=== PATIENT | female | born 1975 | race Caucasian/White ===

== ENCOUNTER 2023-05-24 07:24 | Outpatient (OUT) | payer BC, SELFPAY | END 2023-05-24 07:25 | disposition home or self-care (01) | LOC: SLEEP 07:39 | PROVIDERS: PCP Family Medicine; Visit Provider Family Medicine | DX: G47.33 Obstructive sleep apnea (adult) (pediatric) (principal) | CPT/HCPCS: 95806 ==

== ENCOUNTER 2023-10-19 10:11 | Outpatient (OUT) | payer BC, SELFPAY ==
[2023-10-19 10:27] LABS: Basophils Percent Auto 0.4 % (0.2-2.0); Eosinophils Absolute Auto 0.3 10^3/uL (0.0-0.7); Eosinophils Percent Auto 3.7 % (0.9-7.0); Hematocrit 40.7 % (36.0-48.0); Hemoglobin 13.4 g/dL (12.0-16.0); Immature Granulocytes Abs Auto 0.02 10^3/uL (0.00-0.03); Immature Granulocytes Pct Auto 0.3 % (0.0-0.5); Lymphocytes Absolute Auto 1.6 10^3/uL (1.2-3.8); Lymphocytes Percent Auto 23.4 % (20.5-60.0); Mean Corpuscular HGB Conc 32.9 g/dL (29.9-35.2); Mean Corpuscular Hemoglobin 30.1 pg (26.7-34.0); Mean Corpuscular Volume 91.5 fL (81.0-99.0); Mean Platelet Volume 10.1 fL (9.5-13.5); Monocytes Absolute Auto 0.7 10^3/uL (0.3-0.8); Monocytes Percent Auto 9.9 % (1.7-12.0); Neutrophils Absolute Auto 4.2 10^3/uL (1.4-6.5); Neutrophils Percent Auto 62.3 % (43.0-75.0); Platelet Count 273 10^3/uL (150-450); Red Blood Count 4.45 10^6/uL (4.20-5.40); White Blood Count 6.7 10^3/uL (4.0-11.0)
[2023-10-19 10:39] LABS: Estimated Average Glucose 103 mg/dL; Glycohemoglobin A1C 5.2 % (4.5-6.2)
[2023-10-19 10:51] LABS: Anion Gap 9.5; BUN Creatinine Ratio 10.6; Calcium 8.9 mg/dL (8.5-10.1); Carbon Dioxide 28.4 mmol/L (21.0-32.0); Chloride 102 mmol/L (98-107); Estimated GFR (African America >60 (>=60); Estimated GFR (Non-African Ame >60 (>=60); Glucose 102 mg/dL (74-106); Potassium 3.9 mmol/L (3.5-5.1); Sodium 136 mmol/L (136-145); Thyroid Stimulating Hormone 2.319 uIU/mL (0.358-3.740)
== END 2023-10-19 10:12 | disposition home or self-care (01) ==
LOC: LAB 10:12
PROVIDERS: PCP Family Medicine; Visit Provider Family Medicine
DX: M79.2 Neuralgia and neuritis, unspecified (principal); R79.89 Other specified abnormal findings of blood chemistry; R73.09 Other abnormal glucose
CPT/HCPCS: 36415; 80048; 82306; 82728; 83036; 84443; 85025

== ENCOUNTER 2025-08-06 13:29 | Outpatient (OUT) | payer BC, SELFPAY ==
--- OUTSIDE RECORDS SUMMARY | 2025-08-06 13:31 | XMS_ITS | CCD ---
Author Organization [facility] Care Team Providers Care Underwear Finisher Name Role Phone Unavailable Primary Care Provider MICHELLE Sheehan Referring Unavailable OBDULIO, DR FLAKITA Cuadra Attending Unavailable WEST, DR FLAKITA Cuadra Admitting Unavailable SEVERINO, DR HERI Junior Primary Care Unavailable WEST, DR FLAKITA Cuadra Consulting Unavailable WEST, DR FLAKITA Cuadra Attending Unavailable WEST, DR FLAKITA Cuadra Admtrisha Unavailable SEVERINO, DR HERI Junior Primary Care Unavailable WEST, DR FLAKITA Cuadra Consulting Unavailable SIN, DR CORNELIO Martinez Consulting Unavailable WEST, DR FLAKITA Cuadra Admitting Unavailable WEST, DR FLAKITA Cuadra Consulting Unavailable WEST, DR FLAKITA Cuadra Attending Unavailable SEVERINO, DR HERI Junior Primary Care Unavailable ZIEBER, DR CORNELIO Martinez Consulting Unavailable WEST, DR FLAKITA Cuadra Attending Unavailable WEST, DR FLAKITA Cuadra Admitting Unavailable SEVERINO, DR HERI Junior Primary Care Unavailable WEST, DR FLAKITA Cuadra Consulting Unavailable WEST, DR FLAKITA Cuadra Admtrisha Unavailable WEST, DR FLAKITA Cuadra Consulting Unavailable WEST, DR FLAKITA Cuadra Attending Unavailable SEVERINO, DR HERI Junior Primary Care Unavailable WEST, DR FLAKITA Cuadra Admitting Unavailable WEST, DR FLAKITA Cuadra Consulting Unavailable WEST, DR FLAKITA Cuadra Attending Unavailable SEVERINO, DR HERI Junior Primary Care Unavailable WEST, DR FLAKITA Cuadra Consulting Unavailable WEST, DR FLAKITA Cuadra Attending Unavailable SEVERINO, DR HERI Junior Primary Care Unavailable WEST, DR FLAKITA Cuadra Admitting Unavailable WEST, DR FLAKITA Cuadra Attending Unavailable WEST, DR FLAKITA Cuadra Admitting Unavailable SEVERINO, DR HERI Junior Primary Care Unavailable WEST, DR FLAKITA Cuadra Consulting Unavailable WEST, DR FLAKITA Cuadra Attending Unavailable WEST, DR FLAKITA Cuadra Admitting Unavailable SEVERINO, DR HERI Junior Primary Care Unavailable WEST, DR FLAKITA Cuadra Consulting Unavailable SEVERINO, DR HERI Junior Consulting Unavailable SEVERINO, DR HERI Junior Attending Unavailable SEVERINO, DR HERI Junior Admitting Unavailable SEVERINO, DR HERI Junior Primary Care Unavailable WEST, DR FLAKITA Cuadra Consulting Unavailable SEVERINO, DR HERI Junior Consulting Unavailable SEVERINO, DR HERI Junior Attending Unavailable SEVERINO, DR HERI Junior Admitting Unavailable SEVERINO, DR HERI Junior Primary Care Unavailable WEST, DR FLAKITA Cuadra Admitting Unavailable DR FLAKITA MAK V Consulting Unavailable DR FLAKITA MAK V Attending Unavailable DR HERI SEVERINO Primary Care Unavailable Giana Joseph Unavailable Chana Zaragoza Attending Unavailable Chana Zaragoza Attending Unavailable Giana Joseph MD Primary Care Provider Giana Joseph MD Attending Provider Allergies Allergy Classification Reported Allergen(s) Allergy Type Date of Onset Reaction(s) Facility (1 source) Latex Drug allergy (disorder) 03-07-2013 [facility] Rep[facility] (1 source) Meperidine Drug Allergy 03-07-2013 [facility] (1 source) Nalbuphine Drug Allergy 03-07-2013 [facility] Medications Current Medications Medication Drug Class(es) Dates Sig (Normalized) Sig (Original) cholecalciferol 1.25 mg oral capsule (1 source) Vitamin D Start: 07-13-2025 take 1 capsule by mouth every week Cholecalciferol (Vitamin D3) 1,250 mcg (50,000 unit) capsule Active 1250 MCG PO every week July 13, 2025 12:00am Complies with drug therapy levothyroxine sodium 0.075 mg oral tablet (1 source) l-Thyroxine Start: 07-13-2025 take 1 tablet by mouth once daily Levothyroxine 75 mcg tablet Active 75 MCG PO daily July 13, 2025 12:00am Complies with drug therapy Problems Active Problems Problem Classification Problem Date Documented Date Episodic/Chronic Abdominal pain (1 source) Unspecified abdominal pain Episodic Other lower respiratory disease (1 source) Snoring Episodic Other nutritional; endocrine; and metabolic disorders (3 sources) Body mass index 30+ - obesity; Translations: [Body mass index (BMI) 32.0-32.9, adult] Chronic Other nutritional; endocrine; and metabolic disorders (3 sources) Obesity caused by energy imbalance; Translations: [Other obesity due to excess calories] Chronic Other nutritional; endocrine; and metabolic disorders (1 source) Other obesity due to excess calories Chronic Other nutritional; endocrine; and metabolic disorders (1 source) Body mass index (BMI) 32.0-32.9, adult Chronic Other nutritional; endocrine; and metabolic disorders (2 sources) Obesity; Translations: [Class 1 obesity with body mass index (BMI) of 33.0 to 33.9 in adult] 07-13-2025 Chronic Other screening for suspected conditions (not mental disorders or infectious disease) (5 sources) Encounter for screening mammogram for malignant neoplasm of breast; Translations: [Abnormal electrocardiogram [ECG] [EKG]] Onset: 08-18-2021 Episodic Past or Other Problems Problem Classification Problem Date Documented Da te Episodic/Chronic Conditions associated with dizziness or vertigo (4 sources) Dizziness and giddiness; Translations: [DIZZINESS AND GIDDINESS] Onset: 1 Episodic Nonspecific chest pain (1 source) Chest pain, unspecified; Translations: [CHEST PAIN UNSPECIFIED] Onset: 1 Episodic Phlebitis; thrombophlebitis and thromboembolism (8 sources) Phlebitis and thrombophlebitis of superficial vessels of right lower extremity; Translations: [Phlebitis and thrombophlebitis of superficial vessels of left lower extremity] Onset: 1 Episodic Varicose veins of lower extremity (4 sources) Varicose veins of bilateral lower extremities with pain; Translations: [VARICOSE VNS ALISA LOW EXTREM W/PAIN] Onset: 2 Episodic Results Test Name Value Interpretation Reference Range Facil it Family Medicine Office/Clini c Noteon 08-02-2024 Family Medicine Office/Clinic Note Family Medicine Office/Clinic Note Chief Complaint Work Physical HPI Staff Chana is a 49 year old female presenting with pre-employment work physical Pt did not bring form with her, will drop off tomorrow. No concerns at this time History of Present Illness pt presents for wellness exam. Review of Systems PHQ Score Initial Depression Screen Score: 0 SCORE Physical Exam Vitals & Measurements T: 36.6 ?C(Tympanic) HR: 72(Peripheral) RR: 16 BP: 128/84 SpO2: 98% HT: 66 in HT: 167 cm WT: 95.25 kg WT: 209.55 lb BMI: 34.15 General: alert, no acute distress ENMT: oral mucosa moist, no pharyngeal erythema or exudate Cardiovascular: regular rate and rhythm, normal peripheral perfusion Respiratory: Lungs CTA, respirations non labored Extremities: no deformity, no trauma Neurological: oriented x 4, LOC appropriate for age, CN II-XII intact, motor strength equal & normal bilaterally, speech normal Assessment/Plan 1. Wellness examination (Z00.00: Encounter for general adult medical examination without abnormal findings) pt presents for physical exam. did not bring form for work. will drop off tomorrow. physical exam WNL. all questions answered. RTC as needed Ordered: Est Preventative 40 to 64 years 54487 2. BMI 34.0-34.9,adult (Z68.34: Body mass index [BMI] 34.0-34.9, adult) BMI education Ordered: Est Preventative 40 to 64 years 85310 3. Obesity (BMI 30.0-34.9) (E66.811: Obesity, class 1) see above Ordered: Est Preventative 40 to 64 years 28816 4. Nonsmoker (Z78.9: Other specified health status) continue not smoking Ordered: Est Preventative 40 to 64 years 06757 Follow-up No qualifying data available Problem List/Past Medical History Ongoing BMI 34.0-34.9,adult Bronchitis Nonsmoker Obesity (BMI 30.0-34.9) Wellness examination Historical No qualifying data Procedure/Surgical History Hysterectomy (2011). Medications No active medications Allergies No Known Allergies Social History Tobacco Never (less than 100 in lifetime) Tobacco Use:. Cigarettes, Household tobacco concerns: No. Yes, 08/01/2024 Immunizations Vaccine Date Status Comments SARS-CoV-2 (COVID-19) mRNA BNT-162b2 vax 10/14/2021 Recorded hepatitis A-hepatitis B vaccine 01/13/2021 Recorded SARS-CoV-2 (COVID-19) mRNA-1273 vaccine 11/20/2020 Recorded 2024-07-31: TPV15 SARS-CoV-2 (COVID-19) mRNA-1273 vaccine 10/23/2020 Recorded hepatitis A-hepatitis B vaccine 08/08/2020 Recorded hepatitis B adult vaccine 10/04/1998 Recorded Td(adult) unspecified formulation 05/27/1998 Recorded hepatitis B adult vaccine 05/08/1998 Recorded measles/mumps/rubella virus vaccine 05/01/1998 Recorded hepatitis B adult vaccine 04/05/1998 Recorded Normal [facility] Comment on above: Result Comment: Elec tronically Signed By: Chana Velasco\.br\Date and Time Signed: 08/02/24 14:21 EDT Ambulatory Visit Summaryon 1 Ambulatory Visit Summary Ambulatory Visit Summary CHANA DELGADO :1975 Visit Date:08/01/2024 Ambulatory Visit Instructions Your Diagnosis Wellness examination Your Care Team Attending Physician - Chana Velasco Primary Care Physician - Chana Velasco Procedures Performed Hysterectomy (2011). Discharge Vitals Temperature (Tympanic) 36.6 ?C Heart Rate (Peripheral) 72 Respiratory Rate 16 Blood Pressure 128/84 Height 167 cm Height 66 in Weight 95.25 kg Weight 209.55 lb BMI 34.15 Allergies No Known Allergies Problems Ongoing - Any problem that you are currently receiving treatment for. Bronchitis Wellness examination Patient Survey You may receive a survey via text or e-mail asking about your office visit. Please share your experience with us by completing your survey. We appreciate your feedback and thank you for choosing us for your care. [facility] Ambulatory Visit Summaryon 0 05-24-2024 Ambulatory Visit Summary Ambulatory Visit Summary SANDY CHANA Almendarez :1975 Visit Date:05/24/2024 Ambulatory Visit Instructions Your Diagnosis Bronchitis Non-smoker BMI 35.0-35.9,adult Your Care Team Attending Physician - Chana Velasco Primary Care Physician - Chana Velasco Discharge Vitals Temperature (Temporal Artery) 36.6 ?C Heart Rate (Peripheral) 86 Respiratory Rate 18 Blood Pressure 128/84 Height 167.4 cm Height 66 in Weight 98.8 kg Weight 217.36 lb BMI 35.26 Allergies No Known Allergies Problems Ongoing - Any problem that you are currently receiving treatment for. Bronchitis Patient Survey You may receive a survey via text or e-mail asking about your office visit. Please share your experience with us by completing your survey. We appreciate your feedback and thank you for choosing us for your care. [facility] Family Medicine Office/Clini c Noteon 05-24-2024 Family Medicine Office/Clinic Note Family Medicine Office/Clinic Note HPI Staff Chana is a 49 year old female presenting for acute visit (will establish at a later date, okayed by Chana) Acute: sore throat patient present for sore throat, onset sinus congestion- yes swollen nodes- red/ white spots- fever/chills- yes body aches- no nausea/ vomiting- no cough- yes ear pain no allergies- no medication taken- OTC Tylenol Chest congestion yes Took COVID test yesterday and was NEG- History of Present Illness pt presents today for URI symptoms Review of Systems PHQ Score Initial Depression Screen Score: 0 SCORE Physical Exam Vitals & Measurements T: 36.6 ?C(Temporal Artery) HR: 86(Peripheral) RR: 18 BP: 128/84 SpO2: 97% HT: 66 in HT: 167.4 cm WT: 98.8 kg WT: 217.36 lb BMI: 35.26 General: alert, no acute distress ENMT: oral mucosa moist, no pharyngeal erythema or exudate Cardiovascular: regular rate and rhythm, normal peripheral perfusion Respiratory: Lungs CTA, respirations non labored Extremities: no deformity, no trauma Neurological: oriented x 4, LOC appropriate for age, CN II-XII intact, motor strength equal & normal bilaterally, speech normal Assessment/Plan 1. Bronchitis (J40: Bronchitis, not specified as acute or chronic) pt states she gets bronchitis once a year. will treat with z lizett and medrol dose pack Ordered: azithromycin, = 1 packet(s), Oral, As Directed, as directed on package labeling, X 5 day(s), # 6 tab(s), Refills(s) 0, Pharmacy: [facility]/pharmacy #[id number], 167.4, cm, 05/24/24 11:33:00 EDT, Height/Length Dosing, 98.8, kg, 05/24/24 11:33:00 EDT, Weight Dosing methylPREDNISolone, = 1 packet(s), Oral, As Directed, as directed on package labeling, X 6 day(s), # 21 tab(s), Refills(s) 0, Pharmacy: [facility]/pharmacy #[id number], 167.4, cm, 05/24/24 11:33:00 EDT, Height/Length Dosing, 98.8, kg, 05/24/24 11:33:00 EDT, Weight Dosing 2. Non-smoker (Z78.9: Other specified health status) continue not smoking Ordered: azithromycin, = 1 packet(s), Oral, As Directed, as directed on package labeling, X 5 day(s), # 6 tab(s), Refills(s) 0, Pharmacy: [facility]/pharmacy #[id number], 167.4, cm, 05/24/24 11:33:00 EDT, Height/Length Dosing, 98.8, kg, 05/24/24 11:33:00 EDT, Weight Dosing methylPREDNISolone, = 1 packet(s), Oral, As Directed, as directed on package labeling, X 6 day(s), # 21 tab(s), Refills(s) 0, [id number] 167.4, cm, 05/24/24 11:33:00 EDT, Height/Length Dosing, 98.8, kg, 05/24/24 11:33:00 EDT, Weight Dosing 3. BMI 35.0-35.9,adult (Z68.35: Body mass index [BMI] 35.0-35.9, adult) BMI education given Ordered: azithromycin, = 1 packet(s), Oral, As Directed, as directed on package labeling, X 5 day(s), # 6 tab(s), Refills(s) 0, [id number], 167.4, cm, 05/24/24 11:33:00 EDT, Height/Length Dosing, 98.8, kg, 05/24/24 11:33:00 EDT, Weight Dosing methylPREDNISolone, = 1 packet(s), Oral, As Directed, as directed on package labeling, X 6 day(s), # 21 tab(s), Refills(s) 0, [id number], 167.4, cm, 05/24/24 11:33:00 EDT, Height/Length Dosing, 98.8, kg, 05/24/24 11:33:00 EDT, Weight Dosing Follow-up No qualifying data available Problem List/Past Medical History Ongoing Bronchitis Historical No qualifying data Medications azithromycin 250 mg Tab, 1 packet(s), Oral, As Directed Medrol 4 mg Tab, 1 packet(s), Oral, As Directed Allergies No Known Allergies Social History Tobacco Never (less than 100 in lifetime) Tobacco Use:. Never Smokeless Tobacco Use:. Cigarettes, 05/24/2024 [facility] Comment on above: Result Comment: Elec tronically Signed By: Nik SANDOVAL, Chana Almendarez\.br\Date and Time Signed: 07/31/24 11:53 EDT MG MAMM SCREEN 3D ALISA CADon 07-13-2022 MG MAMM SCREEN 3D ALISA CAD Patient: CHANA DELGADO. Exam Date: 07/13/2022 : 1975 Gender:F Ordering : DR HERI SEVERINO . Admission #: [id number] Family : Order #: [id number] CLICK HERE TO VIEW EXAM RADIOLOGY REPORT PROCEDURE: MAMMOGRAM SCREENING 3D BILATERAL CAD COMPARISON: MG MAMM SCREEN 3D ALISA CAD, 11/04/2019. MG MAMM SCREEN 3D ALISA CAD, 06/10/2021. INDICATIONS: Screening mammography Calculator Name NCI Breast Cancer Risk Assessment Tool 5 Year Breast Cancer Risk Not Reported. Lifetime Breast Cancer Risk Not Reported. Personal Breast Cancer No Personal Ovarian Cancer No Treatments None Family Cancers None LOCATION: [facility] BREAST COMPOSITION: Heterogeneously dense,which may obscure small masses. FINDINGS: DIAGNOSTIC CATEGORY 1--NEGATIVE. NO CHANGE FROM COMPARISON ASSESSMENT. Scattered benign-appearing calcifications are present. Scattered benign-appearing lymph nodes are present. RIGHT BREAST: No significant suspicious finding. LEFT BREAST: No significant suspicious finding. RECOMMENDATIONS: ROUTINE MAMMOGRAM AND CLINICAL EVALUATION IN 12 MONTHS. PLEASE NOTE: A NORMAL MAMMOGRAM DOES NOT EXCLUDE THE POSSIBILITY OF BREAST CANCER. A CLINICALLY SUSPICIOUS PALPABLE LUMP SHOULD BE BIOPSIED. Dictated by: Flakita Mak MD on 07/14/2022 at 07:34 Approved by: Flakita Mak MD on 07/14/2022 at 07:35 Normal [facility] VC CONSULT FOLLOWUPon 2021 VC CONSULT FOLLOWUP Patient: CHANA DELGADO Exam Date: 12/08/2021 : 1975 Gender:F Ordering : DR FLAKITA MAK M.D. Admission #: [id number] Family : Order #: [id number] CLICK HERE TO VIEW EXAM RADIOLOGY REPORT PROCEDURE: VEIN CENTER CONSULTATION FOLLOWUP VEIN CENTER - OFFICE VISIT FOLLOW UP COMPARISON: VC CONSULT FOLLOWUP, 10/27/2021. VC CONSULT FOLLOWUP, 10/21/2021. PROGRESS NOTES: The patient reports no pain or discomfort following self foam of a left leg incompetent varicose vein. The patient has followed our recommendations to walk 20-30 minutes once or twice per day since the procedure. The treated veins can be palpated on physical exam with a minimal amount of hemosiderin staining along the distal anterior thigh. No residual patent varicose veins or reticular veins can be observed. No areas of erythema or warmth. No evidence of cellulitis or thrombophlebitis Review of the ultrasound performed the same day demonstrates occlusive thrombus extending throughout the treated left leg veins. No deep vein thrombus.. At this time the patient's treatments are finished. I did discuss with her that vein disease is an ongoing chronic disease process, while her treatments have been successful she likely will develop new disease that will need treatment in the future. IMPRESSION: 1. Successful ablation incompetent left leg varicose veins PLAN: Follow-up as needed Nurse notes, history and physical were reviewed and confirmed, see attached forms. The nurse was present throughout the physical exam and consultation Dictated by: Flakita Mak MD on 12/08/2021 at 15:23 Approved by: Flakita Mak MD on 12/08/2021 at 15:30 Normal [facility] VC EXT VENOUS RT LIMITEDon 0 12-08-2021 VC EXT VENOUS RT LIMITED Patient: CHANA DELGADO Exam Date: 12/08/2021 : 1975 Gender:F Ordering : DR FLAKITA MAK M.D. Admission #: [id number] Family : Order #: [id number] CLICK HERE TO VIEW EXAM RADIOLOGY REPORT PROCEDURE: VEIN CENTER EXTREMITY VENOUS RIGHT LIMITED COMPARISON: VC EXT VENOUS RT LIMITED, 10/27/2021. VC EXT VENOUS RT LIMITED, 10/21/2021. INDICATIONS: Phlebitis and thrombophlebitis of superficial veins of right lower extremity I80.01 TECHNIQUE: Lower extremity hill scale and Duplex Doppler evaluation of the deep venous system from the inguinal ligament through the calf veins. FINDINGS: REGION: Right lower extremity. THROMBI: Negative for DVT. Chemically induced thrombus in varicose vein distal/anterior thigh to the mid/medial thigh. COMPRESSIBILITY: Noncompressibility corresponding to thrombus FLOW: Absent flow corresponding to thrombus OTHER: Patent portion of varicosity mid thigh measures 2 mm. *Exam performed in accordance with [facility] practice guidelines- Peripheral venous ultrasound, January 18, 2010. CONCLUSION: Post ablation occlusion of incompetent varicose veins Dictated by: Flakita Mak MD on 12/08/2021 at 15:22 Approved by: Flakita Mak MD on 12/08/2021 at 15:22 Normal [facility] VC INJ SCL DUY TECHNICAL SUPPORT ENGINEER VEINSon 0 2-07-2022 VC INJ SCL DUY TECHNICAL SUPPORT ENGINEER VEINS Patient: CHANA DELGADO Exam Date: 12/01/2021 : 1975 Gender:F Ordering : DR FLAKITA MAK M.D. Admission #: [id number] Family : Order #: [id number] CLICK HERE TO VIEW EXAM RADIOLOGY REPORT PROCEDURE: VEIN CENTER INJECTION SCLEROSING SOLUTION MULTIPLE VEINS SAME COMPARISON: None. INDICATIONS: Pain co-occurrent and due to varicose veins of bilateral legs I83.813 PROCEDURE NOTE: The risks and benefits of the procedure were explained at length to the patient and informed written consent was obtained. I personally performed the injection. The procedure was performed under sterile technique. The patient's leg was wrapped with Coban and postprocedural verbal and written instructions provided. SCLEROSANT: 8 cc self foamed polidocanol VEIN(S) INJECTED: Single large vein right anterior thigh VISUALIZATION: Ultrasound was used to visualize the sclerosant ANESTHESIA none COMPLICATIONS: None CONCLUSION: 1. Technically successful sclerotherapy as described Dictated by: Flakita Mak MD on 12/01/2021 at 15:45 Approved by: Flakita Mak MD on 12/01/2021 at 15:46 Normal [facility] VC CONSULT FOLLOWUPon 2021 VC CONSULT FOLLOWUP Patient: CHANA DELGADO Exam Date: 10/27/2021 : 1975 Gender:F Ordering : DR FLAKITA MAK M.D. Admission #: [id number] Family : Order #: [id number] CLICK HERE TO VIEW EXAM RADIOLOGY REPORT PROCEDURE: VEIN CENTER CONSULTATION FOLLOWUP VEIN CENTER - OFFICE VISIT FOLLOW UP COMPARISON: VC CONSULT FOLLOWUP, 10/21/2021. VC CONSULT FOLLOWUP, 09/03/2021. PROGRESS NOTES: The patient reports some mild discomfort of the anterior right thigh following intravenous laser ablation of the anterior accessory saphenous vein. The patient did not require oral analgesics. The patient has worn her compression stockings.. The patient has followed our recommendations to walk 20-30 minutes once or twice per day since the procedure. Physical exam demonstrates several areas of bruising in the anterior proximal thigh related to the prior procedure. No areas of erythema or warmth. Thrombosed varicose veins can be palpated proximally with a patent varicose vein noted along the proximal to mid anterior thigh. Review of the ultrasound performed the same day demonstrates occlusive thrombus extending throughout the treated anterior accessory saphenous vein with heat induced thrombus 3 cm from the saphenofemoral junction. Incompetent branch saphenous tributary/varicose vein measuring up to 5.3 mm. The patient expressed a desire to proceed with treatment of residual incompetent varicose veins, reticular and spider veins with injection sclerotherapy. IMPRESSION: 1. Successful ablation of the right anterior accessory saphenous vein 2. Persistent incompetent varicose, reticular and spider veins PLAN: Injection sclerotherapy right leg Nurse notes, history and physical were reviewed and confirmed, see attached forms. The nurse was present throughout the physical exam and consultation Dictated by: Flakita Mak MD on 10/27/2021 at 11:22 Approved by: Flakita Mak MD on 10/27/2021 at 11:26 [facility] VC EXT VENOUS RT LIMITEDon 0 10-27-2021 VC EXT VENOUS RT LIMITED Patient: CHANA DELGADO Exam Date: 10/27/2021 : 1975 Gender:F Ordering : DR FLAKITA MAK M.D. Admission #: [id number] Family : Order #: [id number] CLICK HERE TO VIEW EXAM RADIOLOGY REPORT PROCEDURE: VEIN CENTER EXTREMITY VENOUS RIGHT LIMITED COMPARISON: VC EXT VENOUS RT LIMITED, 10/21/2021. VC EXT VENOUS RT LIMITED, 07/10/2021. INDICATIONS: Phlebitis and thrombophlebitis of superficial veins of right lower extremity I80.01 TECHNIQUE: Lower extremity hill scale and Duplex Doppler evaluation of the deep venous system from the inguinal ligament through the calf veins. FINDINGS: REGION: Right lower extremity. THROMBI: Negative for DVT. Heat induced thrombus is visualized 3.0cm from SFJ to insertion at the proximal thigh approximately 10cm in length COMPRESSIBILITY: Noncompressibility corresponding to thrombus FLOW: Absent flow corresponding to thrombus OTHER: Varicosity is visualized off AASV in the proximal thigh measuring 5.3mm with 0.7s of reflux *Exam performed in accordance with [facility] practice guidelines- Peripheral venous ultrasound, January 18, 2010. CONCLUSION: Post ablation occlusion of the right anterior accessory saphenous vein with residual incompetent branch saphenous tributary/varicose vein measuring up to 5.3 mm Dictated by: Flakita Mak MD on 10/27/2021 at 11:21 Approved by: Flakita Mak MD on 10/27/2021 at 11:22 Normal [facility] VC ENDOVENOUS ABL 1ST V RTon 10-24-2021 VC ENDOVENOUS ABL 1ST V RT Patient: CHANA DELGADO Exam Date: 10/24/2021 : 1975 Gender:F Ordering : DR FLAKITA MAK M.D. Admission #: [id number] Family : Order #: [id number] CLICK HERE TO VIEW EXAM RADIOLOGY REPORT PROCEDURE: VEIN CENTER ENDOVENOUS ABLATION FIRST VEIN RIGHT ANTERIOR ACCESSORY SAPHENOUS VEIN COMPARISON: VC ENDOVENOUS ABL 1ST V RT, 10/23/2021. VC ENDOVENOUS ABL 1ST V RT, 10/15/2021. INDICATIONS: Pain co-occurrent and due to varicose veins of bilateral legs i83.813 OPERATIVE REPORT: The risks and benefits of the procedure had been previously discussed, and were rediscussed at length. Informed written consent was obtained by and Darryl Sandoval assisted. Time out procedure was performed. The right lower extremity was prepared and draped in the usual sterile fashion to allow knee flexion in the sterile field. Duplex ultrasound probe was draped in a sterile cover, sterile transmission gel was used. Venous mapping was performed with the areas of dilation and large tributaries marked. The total length was 13 cm from the entry mid thigh to 3 cm below the saphenofemoral junction. The diameter of the greater saphenous vein ranged from 4-9 mm. A 30 gauge needle and 1% buffered lidocaine was used to anesthetize the entry site. A 4 mm incision was made with a scalpel and the saphenous vein was entered percutaneously under direct ultrasound guidance with a micropuncture set, a single stick was successful in gaining access. A micro-guide wire was inserted and the needle removed. A micro-set including a dilator was inserted over the microwire and the needle and dilator were removed. A 0.018 guide wire was inserted through the micro-set and threaded through the saphenous vein to the saphenofemoral junction. The dilator was removed and an introducer sheath was inserted over the wire until the end of the sheath entered the saphenofemoral junction. The dilator and wire were removed and the 600 micron fiber was introduced and placed and positioned so that it extended beyond the sheath and was 3 cm peripheral to the saphenofemoral femoral junction. Final position of the fiber was determined by ultrasound guidance and duplex imaging. Tumescent anesthetic was delivered by ultrasound guidance. 150 cc of fluid was delivered along the entire course of the saphenous vein. The solution consisted of 500 cc of normal saline with 20mL of 1% lidocaine and 10 mL of sodium bicarbonate. A final positioning check was made. The energy source was turned on by means of the foot pedal and the fiber and sheath were withdrawn. The total number of Joules delivered was 657. The laser was active for 82 seconds under continuous pulse, average laser use of 8 J. Laser start time 7:42 a.m. October 24, 2021. Laser stop time 7:44 a.m. October 24, 2021. A duplex ultrasound revealed compressibility and flow at the saphenofemoral junction immediately after the procedure. Hemostasis at the access site was achieved. The skin incision of the saphenous vein was closed with a 4 x 4. A compression stocking was applied. Postop instructions were given. A follow up appointment was recommended and scheduled. The patient tolerated the procedure well and was discharged in good condition. CONCLUSION: 1. Technically successful endovenous laser ablation of the right anterior accessory saphenous vein. Dictated by: Flakita Mak MD on 10/24/2021 at 07:45 Approved by: Flakita Mak MD on 10/24/2021 at 07:58 Normal [facility] VC ENDOVENOUS ABL 1ST V RTon 10-23-2021 VC ENDOVENOUS ABL 1ST V RT Patient: CHANA DELGADO Exam Date: 10/23/2021 : 1975 Gender:F Ordering : DR FLAKITA MAK M.D. Admission #: [id number] Family : Order #: [id number] CLICK HERE TO VIEW EXAM RADIOLOGY REPORT PROCEDURE: VEIN CENTER ENDOVENOUS ABLATION FIRST VEIN RIGHT ANTERIOR ACCESSORY SAPHENOUS VEIN COMPARISON: VC ENDOVENOUS ABL 1ST V RT, 10/15/2021. VC ENDOVENOUS ABL 1ST V RT, 07/03/2021. INDICATIONS: Pain co-occurrent and due to varicose veins of bilateral legs I83.813 OPERATIVE REPORT: The risks and benefits of the procedure had been previously discussed, and were rediscussed at length. Informed written consent was obtained by and Darryl delgado. Time out procedure was performed. The right lower extremity was prepared and draped in the usual sterile fashion to allow knee flexion in the sterile field. Duplex ultrasound probe was draped in a sterile cover, sterile transmission gel was used. Venous mapping was performed with the areas of dilation and large tributaries marked. A 30 gauge needle and 1% buffered lidocaine was used to anesthetize the entry site. Incompetent tributary extending off the anterior accessory saphenous vein was entered percutaneously under direct ultrasound guidance with a micropuncture set, a single stick was successful in gaining access. The guidewire could not be advanced likely related to scarring and/or a valve. Significant vasospasm of the vein occurred. Four additional attempts to gain access into the anterior accessory saphenous vein were unsuccessful. Due to the vasospasm which did not resolve over the course of 30 minutes, the procedure was canceled. CONCLUSION: 1. Technically unsuccessful endovenous laser ablation of the right anterior accessory saphenous vein secondary to vasospasm and scarring. Dictated by: Flakita Mak MD on 10/23/2021 at 13:14 Approved by: Flakita Mak MD on 10/23/2021 at 13:17 Normal [facility] VC CONSULT FOLLOWUPon 2020 VC CONSULT FOLLOWUP Patient: CHANA DELGADO Exam Date: 10/21/2021 : 1975 Gender:F Ordering : DR FLAKITA MAK M.D. Admission #: [id number] Family : Order #: [id number] CLICK HERE TO VIEW EXAM RADIOLOGY REPORT PROCEDURE: VEIN CENTER CONSULTATION FOLLOWUP VEIN CENTER - OFFICE VISIT FOLLOW UP COMPARISON: VC CONSULT FOLLOWUP, 09/03/2021. VC CONSULT FOLLOWUP, 07/10/2021. PROGRESS NOTES: The patient reports no significant problems following intravenous laser ablation of the right small saphenous vein. Patient does complain of a large varicose vein along the anterior right thigh. The patient has followed our recommendations to walk 20-30 minutes once or twice per day since the procedure. The patient reports significant improvement in her initial presenting symptoms however she does have pain along the anterior right thigh related to a varicose vein. Physical exam demonstrates no areas of erythema warmth or bruising from the intravenous laser ablation. No evidence of cellulitis or thrombophlebitis. Review of the ultrasound performed the same day demonstrates occlusive thrombus extending throughout the treated right small saphenous vein with heat induced thrombus 1.4 cm from the saphenofemoral junction. Dilated incompetent right anterior accessory saphenous vein with associated branch saphenous incompetent varicose vein. Reflux in the anterior accessory saphenous vein up to 2.4 seconds. The patient expressed a desire to proceed with treatment of right anterior accessory saphenous vein with intravenous laser ablation followed by injection sclerotherapy for reticular and spider veins. IMPRESSION: 1. Successful ablation of the right small saphenous vein 2. Dilated incompetent right anterior accessory saphenous vein with associated branch saphenous varicose vein 3. Bilateral reticular and spider veins PLAN: 1. Endovenous laser ablation right anterior accessory saphenous vein 2. Foam sclerotherapy right anterior thigh varicose veins 3. Injection sclerotherapy bilateral reticular and spider veins Nurse notes, history and physical were reviewed and confirmed, see attached forms. The nurse was present throughout the physical exam and consultation Dictated by: Flakita Mak MD on 10/21/2021 at 10:30 Approved by: Flakita Mak MD on 10/21/2021 at 10:34 Normal [facility] VC EXT VENOUS RT LIMITEDon 1 12-22-2020 VC EXT VENOUS RT LIMITED Patient: CHANA DELGADO Exam Date: 10/21/2021 : 1975 Gender:F Ordering : DR FLAKITA MAK M.D. Admission #: [id number] Family : Order #: [id number] CLICK HERE TO VIEW EXAM RADIOLOGY REPORT PROCEDURE: VEIN CENTER EXTREMITY VENOUS RIGHT LIMITED COMPARISON: VC EXT VENOUS RT LIMITED, 07/10/2021. INDICATIONS: Phlebitis and thrombophlebitis of superficial veins of right lower extremity I80.01 TECHNIQUE: Lower extremity hill scale and Duplex Doppler evaluation of the deep venous system from the inguinal ligament through the calf veins. FINDINGS: REGION: Right lower extremity. THROMBI: Negative for DVT. Heat induced thrombus is visualized in the right small saphenous vein with echogenic thrombus1.4 cm from SPJ to distal calf COMPRESSIBILITY: Noncompressibility corresponding to thrombus. FLOW: Absent flow corresponding to thrombus OTHER: The right AASV proximal measures 6.4cm with 1.1s of reflux and is visualized approximately 10cm in length with 2.4s of reflux. *Exam performed in accordance with [facility] practice guidelines- Peripheral venous ultrasound, January 18, 2010. CONCLUSION: 1. Post ablation occlusion of the right small saphenous vein thrombus 1.4 cm from the saphenous popliteal junction 2. Dilated incompetent right anterior accessory saphenous vein with associated incompetent varicose veins Dictated by: Flakita Mak MD on 10/21/2021 at 10:19 Approved by: Flakita Mak MD on 10/21/2021 at 10:22 Normal [facility] VC ENDOVENOUS ABL 1ST V RTon 10-15-2021 VC ENDOVENOUS ABL 1ST V RT Patient: CHANA DELGADO Exam Date: 10/15/2021 : 1975 Gender:F Ordering : DR FLAKITA MAK M.D. Admission #: [id number] Family : Order #: [id number] CLICK HERE TO VIEW EXAM RADIOLOGY REPORT PROCEDURE: VEIN CENTER ENDOVENOUS ABLATION FIRST VEIN RIGHT COMPARISON: VC ENDOVENOUS ABL 1ST V RT, 07/03/2021. INDICATIONS: Pain co-occurrent and due to varicose veins of bilateral legs I83.813 OPERATIVE REPORT: The risks and benefits of the procedure had been previously discussed, and were rediscussed at length. Informed written consent was obtained by and Darryl Sandoval assisted. Time out procedure was performed. The right lower extremity was prepared and draped in the usual sterile fashion to allow knee flexion in the sterile field. Duplex ultrasound probe was draped in a sterile cover, sterile transmission gel was used. Venous mapping was performed with the areas of dilation and large tributaries marked. The total length was 34 cm from the entry 3 cm above the medial malleolus to 3 cm below the small saphenous-femoral junction. The diameter of the greater saphenous vein ranged from 5.5 mm. A 30 gauge needle and 1% buffered lidocaine was used to anesthetize the entry site. A 4 mm incision was made with a scalpel and the saphenous vein was entered percutaneously under direct ultrasound guidance with a micropuncture set, a single stick was successful in gaining access. A micro-guide wire was inserted and the needle removed. A micro-set including a dilator was inserted over the microwire and the needle and dilator were removed. A 0.018 guide wire was inserted through the micro-set and threaded through the saphenous vein to the saphenofemoral junction. The dilator was removed and an introducer sheath was inserted over the wire until the end of the sheath entered the saphenofemoral junction. The dilator and wire were removed and the 600 micron fiber was introduced and placed and positioned so that it extended beyond the sheath and was 3 cm peripheral to the saphenofemoral femoral junction. Final position of the fiber was determined by ultrasound guidance and duplex imaging. Tumescent anesthetic was delivered by ultrasound guidance. Two hundred twenty-five cc of fluid was delivered along the entire course of the saphenous vein. The solution consisted of 500 cc of normal saline with 20mL of 1% lidocaine and 10 mL of sodium bicarbonate. A final positioning check was made. The energy source was turned on by means of the foot pedal and the fiber and sheath were withdrawn. The total number of Joules delivered was 1775. The laser was active for 222 seconds under continuous pulse, average laser use of 8 J. Laser start time 12:04 p.m. October 15, 2021. Laser stop time 12:09 p.m. October 15, 2021. A duplex ultrasound revealed compressibility and flow at the saphenofemoral junction immediately after the procedure. Hemostasis at the access site was achieved. The skin incision of the saphenous vein was closed with a 4 x 4. A compression stocking was applied. Postop instructions were given. A follow up appointment was recommended and scheduled. The patient tolerated the procedure well and was discharged in good condition. CONCLUSION: 1. Technically successful endovenous laser ablation of the right small saphenous vein. Dictated by: Cornelio Connolly M.D. on 10/15/2021 at 13:27 Approved by: Cornelio Connolly M.D. on 10/15/2021 at 13:30 [facility] VC CONSULT FOLLOWUPon 2020 VC CONSULT FOLLOWUP Patient: CHANA DELGADO Exam Date: 09/03/2021 : 1975 Gender:F Ordering : DR FLAKITA MAK M.D. Admission #: [id number] Family : Order #: [id number] CLICK HERE TO VIEW EXAM RADIOLOGY REPORT PROCEDURE: VEIN CENTER CONSULTATION FOLLOWUP VEIN CENTER - OFFICE VISIT FOLLOW UP COMPARISON: VC CONSULT FOLLOWUP, 07/10/2021. PROGRESS NOTES: The patient reports improvement in left leg symptoms. There has been interval reduction in varicosities. The patient has followed our recommendations to walk 20-30 minutes once or twice per day since the procedure. Physical exam demonstrates healed endovenous entry site without evidence of infection. Persistent varicosities are identified along the left and right. Review of the ultrasound performed the same day demonstrates occlusive thrombus extending throughout the treated vein, see separate report, consistent with a successful ablation. No thrombus extending into or beyond the saphenofemoral junction. The patient expressed a desire to proceed with treatment of right small saphenous vein. The patient was informed that treatment was a process and would require several procedures/sessions. IMPRESSION: 1. Successful ablation of the left great saphenous vein 2. Persistent incompetent right small saphenous vein and bilateral branch saphenous varicosities. PLAN: Endovenous laser ablation of right small saphenous vein followed by microfoam chemical ablation of incompetent branch saphenous varicosities bilaterally. Nurse notes, history and physical were reviewed and confirmed, see attached forms. The nurse was present throughout the physical exam and consultation Dictated by: Cornelio Connolly M.D. on 09/03/2021 at 15:27 Approved by: Cornelio Connolly M.D. on 09/03/2021 at 15:31 Normal [facility] VC EXT VENOUS LT LIMITEDon 1 11-03-2020 VC EXT VENOUS LT LIMITED Patient: CHANA DELGADO Exam Date: 09/03/2021 : 1975 Gender:F Ordering : DR FLAKITA MAK M.D. Admission #: [id number] Family : Order #: [id number] CLICK HERE TO VIEW EXAM RADIOLOGY REPORT PROCEDURE: VEIN CENTER EXTREMITY VENOUS LEFT LIMITED COMPARISON: None. INDICATIONS: Phlebitis and thrombophlebitis of superficial veins of left lower extremity I80.02 TECHNIQUE: Lower extremity hill scale and Duplex Doppler evaluation of the deep venous system from the inguinal ligament through the calf veins. FINDINGS: REGION: Left lower extremity. THROMBI: Negative for DVT. areas treated with heat induced thrombus visualized 2.8cm from SFJ to insertion at proximal calf COMPRESSIBILITY: Non-compressible AND partially compressible segments. FLOW: Areas of no flow. OTHER: *Exam performed in accordance with [facility] practice guidelines- Peripheral venous ultrasound, January 18, 2010. CONCLUSION: 1. Successful post ablation occlusion of the left great saphenous vein. Dictated by: Cornelio Connolly M.D. on 09/03/2021 at 15:22 Approved by: Cornelio Connolly M.D. on 09/03/2021 at 15:27 Normal [facility] VC ENDOVENOUS ABL 1ST V LTon 08-28-2021 VC ENDOVENOUS ABL 1ST V LT Patient: CHANA DELGADO Exam Date: 08/28/2021 : 1975 Gender:F Ordering : DR FLAKITA MAK M.D. Admission #: [id number] Family : Order #: [id number] CLICK HERE TO VIEW EXAM RADIOLOGY REPORT PROCEDURE: VEIN CENTER ENDOVENOUS ABLATION FIRST VEIN LEFT GREAT SAPHENOUS VEIN COMPARISON: VC VENOUS REFLUX ALISA LMT, 05/23/2021. INDICATIONS: Pain co-occurrent and due to varicose veins of bilateral legs I83.813 OPERATIVE REPORT: The risks and benefits of the procedure had been previously discussed, and were rediscussed at length. Informed written consent was obtained by me and Darryl Sandoval assisted. Time out procedure was performed. The left lower extremity was prepared and draped in the usual sterile fashion to allow knee flexion in the sterile field. Duplex ultrasound probe was draped in a sterile cover, sterile transmission gel was used. Venous mapping was performed with the areas of dilation and large tributaries marked. The total length was 43 cm from the entry mid calf to 3 cm below the saphenofemoral junction. The diameter of the greater saphenous vein ranged from 5-10 mm. A 30 gauge needle and 1% buffered lidocaine was used to anesthetize the entry site. A 4 mm incision was made with a scalpel and the saphenous vein was entered percutaneously under direct ultrasound guidance with a micropuncture set, three sticks were successful in gaining access. A micro-guide wire was inserted and the needle removed. A micro-set including a dilator was inserted over the microwire and the needle and dilator were removed. A 0.018 guide wire was inserted through the micro-set and threaded through the saphenous vein to the saphenofemoral junction. The dilator was removed and an introducer sheath was inserted over the wire until the end of the sheath entered the saphenofemoral junction. The dilator and wire were removed and the 600 micron fiber was introduced and placed and positioned so that it extended beyond the sheath and was 3 cm peripheral to the saphenofemoral femoral junction. Final position of the fiber was determined by ultrasound guidance and duplex imaging. Tumescent anesthetic was delivered by ultrasound guidance. 225 cc of fluid was delivered along the entire course of the saphenous vein. The solution consisted of 500 cc of normal saline with 20mL of 1% lidocaine and 10 mL of sodium bicarbonate. A final positioning check was made. The energy source was turned on by means of the foot pedal and the fiber and sheath were withdrawn. The total number of Joules delivered was 2048. The laser was active for 256 seconds under continuous pulse, average laser use of 8 J. Laser start time 15:30, August 28, 2021. Laser stop time 15:34, August 28, 2021. A duplex ultrasound revealed compressibility and flow at the saphenofemoral junction immediately after the procedure. Hemostasis at the access site was achieved. The skin incision of the saphenous vein was closed with a 4 x 4. A compression stocking was applied. Postop instructions were given. A follow up appointment was recommended and scheduled. The patient tolerated the procedure well and was discharged in good condition. CONCLUSION: 1. Technically successful endovenous laser ablation of the left great saphenous vein. Dictated by: Flakita Mak MD on 08/28/2021 at 15:38 Approved by: Flakita Mak MD on 08/28/2021 at 15:43 Normal [facility] Measles (Rubeola) Imon 06-19 Measles (Rubeola) Im 2.58 Normal >1.09 [facility] Comment on above: Result Comment: Interpretation: IMMUNE Reference Range: <0.91 Not Immune 0.91-1.09 Equivocal >1.09 Immune Performed By: #### A HBS, MACARENA, CAIT, ELLEN, VZI #### [employer] [address] [place] [address] [employer] Operator: Pacheco López MD Mumps,Immun,Abon 06-19-2020 Mumps,Immun,Ab 1.22 Normal >1.09 [facility] Comment on above: Result Comment: Interpretation: IMMUNE Reference Range: <0.91 Not Immune 0.91-1.09 Equivocal >1.09 Immune Performed By: #### A HBS, MACARENA, CAIT, ELLEN, VZI #### [address] [id number] [employer] Operator: Pacheco López MD VZ Immunityon 06-19-2020 VZ Immunity 2.37 Normal >1.09 [facility] Comment on above: Result Comment: Interpretation: IMMUNE Reference Range: <0.91 Not Immune 0.91-1.09 Equivocal >1.09 Immune Performed By: #### A HBS, MACARENA, CAIT, ELLEN, VZI #### [address] [id number] [employer] Operator: Pacheco López MD Hep B Surf Abon 06-18-2020 Hep B Surf Ab <3.50 Normal <10 [facility] Comment on above: Result Comment: REFERENCE RANGE: <10.0 NON-REACTIVE/NOT IMMUNE >=10.0 REACTIVE/IMMUNE Performed By: #### A HBS, MACARENA, CAIT, ELLEN, VZI #### [address] [id number] [employer] Operator: Pacheco López MD Rubella Ab, IgGon 06-18-2020 Rubella Ab, IgG >500.0 Normal [facility] Comment on above: Result Comment: REFERENCE RANGE: <5.0 NON-REACTIVE (non-immune) 5.0 TO 9.9 EQUIVOCAL >=10.0 REACTIVE (immune) Performed By: #### A HBS, MACARENA, CAIT, ELLEN, VZI #### [address] [id number] [employer] Operator: Pacheco López MD Hepatitis B Surface Antibody on 06-17-2020 HBV surface Ab (S) [Titer] <3.50 <10 mIU/mL [place], [place] Comment on above: REFERENCE RANGE: <10.0 NON-REACTIVE/NOT IMMUNE >=10.0 REACTIVE/IMMUNE Rubella antibody, IgGon 05-26 Rubella virus IgG Ql (S) >500.0 IU/mL [place], [place] Comment on above: REFERENCE RANGE: <5.0 NON-REACTIVE (non-immune) 5.0 TO 9.9 EQUIVOCAL >=10.0 REACTIVE (immune) Vital Signs Date Time Vital Sign Value Performing Clinician Facility 07-13-2025 13:26-0400 Body height 170.18 cm Giana Joseph MD Work Phone: [facility] 07-13-2025 13:26-0400 Body mass index (BMI) [Ratio] 33.3 kg/m2 Giana Joseph MD Work Phone: [facility] 07-13-2025 13:26-0400 Body weight 96.61 kg Giana Joseph MD Work Phone: [facility] 07-13-2025 13:26-0400 Diastolic blood pressure 83 mm[Hg] Giana Joseph MD Work Phone: [facility] 07-13-2025 13:26-0400 Heart rate 69 /min Giana Joseph MD Work Phone: [facility] 07-13-2025 13:26-0400 Systolic blood pressure 131 mm[Hg] Giana Joseph MD Work Phone: [facility] 07-16-2023 09:30-0400 Body height 166.37 cm Giana Joseph Other [facility] Other 07-16-2023 09:30-0400 Body mass index (BMI) [Ratio] 36.05 kg/m2 Giana Joseph Other [facility] [employer] Other 07-16-2023 09:30-0400 Body weight 99.79 kg Giana Joseph Other [facility] Other 07-16-2023 09:30-0400 Diastolic blood pressure 83 mm[Hg] Giana Joseph Other [facility] [employer] Other 07-16-2023 09:30-0400 Systolic blood pressure 111 mm[Hg] Giana Joseph Other [facility] Other 04-26-2023 14:30-0400 Body height 166.37 cm Giana Joseph Other [facility] Other 04-26-2023 14:30-0400 Body mass index (BMI) [Ratio] 32.61 kg/m2 Giana Joseph Other [facility] Other 04-26-2023 14:30-0400 Body weight 90.27 kg Giana Joseph Other [facility] Other 04-26-2023 14:30-0400 Diastolic blood pressure 90 mm[Hg] Giana Joseph Other [facility] Other 04-26-2023 14:30-0400 Systolic blood pressure 143 mm[Hg] Giana Joseph Other [facility] Other Encounters Encounter Date Encounter Type Care Provider Facility Start: 07-13-2025 End: 07-13-2025 ambulatory Giana Joseph MD Work Phone: [facility] Work Phone: Start: 07-13-2025 End: 07-13-2025 Patient encounter procedure Giana Joseph MD [facility] Work Phone: Start: 07-13-2025 End: 07-13-2025 Patient encounter status Giana Joseph MD [facility] Start: 08-01-2024 End: 08-01-2024 ambulatory Chana L Nik Facility: [facility] Start: 05-24-2024 End: 05-24-2024 ambulatory Chana L Nik Facility: [facility] Start: 05-23-2024 ambulatory Chana Nik Facility:[facility] Start: 10-20-2023 End: 10-20-2023 ambulatory Giana Joseph Other [facility] Other Start: 10-20-2023 Telephone encounter Giana Joseph [facility] Start: 07-16-2023 End: 07-16-2023 ambulatory Giana Joseph Other [facility] Other Start: 07-16-2023 Office outpatient vi sit 15 minutes Giana Jake [facility] Start: 04-26-2023 End: 04-26-2023 ambulatory Giana Joseph Other [facility] Other Start: 04-26-2023 Encounter for genera l adult medical examination without abnormal findings Giana Jake [facility] Start: 04-26-2023 Initial preventive medicine new patient 40-64yrs Giana Jake [facility] Start: 07-13-2022 End: 07-14-[address] HERI SEVERINO Facility:[facility] Start: 12-19-2021 End: 04-27-[address] FLAKITA MAK Facility:[facility] Start: 12-08-2021 End: 12-09-[address] FLAKITA MAK Facility:[facility] Start: 12-01-2021 End: 12-02-[address] FLAKITA MAK Facility:[facility] Start: 10-27-2021 End: 10-28-[address] FLAKITA MAK Facility:[facility] Start: 10-24-2021 End: 10-25-[address] FLAKITA MAK Facility:[facility] Start: 10-23-2021 End: 10-24-[address] FLAKITA MAK Facility:[facility] Start: 10-21-2021 End: 10-22-[address] FLAKITA MAK Facility:[facility] Start: 10-15-2021 End: 10-16-[address] FLAKITA MAK Facility:[facility] Start: 09-03-2021 End: 09-04-[address] FLAKITA MAK Facility:[facility] Start: 08-28-2021 End: 08-29-[address] FLAKITA MAK Facility:[facility] Start: 08-12-2021 End: 08-13-[address] HERI SEVERINO Facility:[facility] Start: 06-17-2020 End: 06-18-2020 Patient encounter procedure MICHELLE GO [facility] Start: 06-17-2020 End: 06-17-2020 Subsequent hospital visit by physician FRANCISCOZ Laboratory Procedures Date Procedure Procedure Detail Performing Clinician Start: 06-17-2020 Antibody mumps MICHELLE GO Start: 06-17-2020 Antibody rubeola ABRAHAM Y ADAN Start: 06-17-2020 Antibody varicella-zoster MICHELLE GO Start: 06-17-2020 Hepatitis b surf ant ibody hbsab MICHELLE GO Start: 06-17-2020 Immunoassay infectio us agent antibody sawyer nos MICHELLE GO Start: 06-17-2020 Hepatitis b surf ant ibody hbsab Michelle Go Work Phone: Start: 06-17-2020 Immunoassay infectio us agent antibody sawyer nos Michelle Go Work Phone: Plan of Treatment Date Care Activity Detail Author End: 06-17-2020 Mumps Antibody, IgG Mumps Antibody, IgG Lab Routine Once for 1 Occurrences starting 06/17/2020 until 06/17/2020 [place], [place] Comment on above: Once for 1 Occurrenc es starting 06/17/2020 until 06/17/2020 Mumps Antibody, IgG Mumps Antibo dy, IgG Lab Routine 06/17/2020 10:20 AM EDT [place] End: 06-17-2020 Rubeola Antibody, IgG Rubeola Antibody, IgG Lab Routine Once for 1 Occurrences starting 06/17/2020 until 06/17/2020 [place], [place] Comment on above: Once for 1 Occurrenc es starting 06/17/2020 until 06/17/2020 Rubeola Antibody, IgG Rubeola An tibody, IgG Lab Routine 06/17/2020 10:20 AM EDT [place] End: 06-17-2020 Varicella Zoster Antibody, IgG Varicella Zoster Antibody, IgG Lab Routine Once for 1 Occurrences starting 06/17/2020 until 06/17/2020 [place], [place] Comment on above: Once for 1 Occurrenc es starting 06/17/2020 until 06/17/2020 Varicella Zoster Antibody, IgG Varicella Zoster Antibody, IgG Lab Routine 06/17/2020 10:20 AM EDT [place] Payers Date Payer Category Payer [facility] [id number] 2020 Unknown [id number] 1975 Unknown [id number] 2.16.8 40.1.252424.3.579.2.173 1975 Unknown [id number] 2.16.84 0.1.034766.3.579.2.593 1975 Unknown [id number] 2.16.84 0.1.393221.3.579.2.593 1975 Unknown [id number] 2.16.84 0.1.688279.3.579.2.593 1975 Unknown [id number] 2.16.84 0.1.491944.3.579.2.593 1975 Unknown [id number] 2.16.84 0.1.626826.3.579.2.593 1975 Unknown [id number] 2.16.84 0.1.637260.3.579.2.593 1975 Unknown [id number] 2.16.84 0.1.612908.3.579.2.593 1975 Unknown [id number] 2.16.84 0.1.657306.3.579.2.593 1975 Unknown [id number] 2.16.84 0.1.500566.3.579.2.593 1975 Unknown [id number] 2.16.84 0.1.746733.3.579.2.593 1975 Unknown [id number] 2.16.84 0.1.716010.3.579.2.593 1975 Unknown [id number] 2.16.84 0.1.002498.3.579.2.593 1975 Unknown [id number] 2.16.8 40.1.569595.3.579.2.727 1975 Unknown [id number] 2.16.8 40.1.706767.3.579.2.727 1975 Unknown [id number] 2.16.8 40.1.501417.3.579.2.727 1959 Self-pay 1959 Unknown [id number] 1959 Unknown [id number] Social History Date Type Detail Facility Tobacco smoking status SCIS Unknown if ever smoked [employer] Sex Assigned At Not on file [employer] Sex Assigned At Sex Assigned At EPIS [facility] [employer] Other Start: 07-04-2025 Tobacco smoking status SCIS Ex-smoker (finding) [facility] Sex Female (finding) [facility] Start: 1975 Sex Assigned At Female [facility] NEGATED: Highlighted row N [facility] Evaluation note 07-16-2023 Note Date & Type Note Facility 07-16-2023 Evaluation note Encounter Date Diagnosis Assessment Notes Jun, Acute right flank pain (ICD-10 - R10.9) UA negative. Discussed possible kidney stone v. musculoskeletal injury from her large dogs. Check KUB, consider stretching/heat/ma nipulation for musculoskeletal relief. [facility] [employer] [facility] Other Evaluation note 04-26-2023 Note Date & Type Note Facility 04-26-2023 Evaluation note Encounter Date Diagnosis Assessment Notes Apr, Well adult exam (ICD-10 - Z00.00) We have discussed the necessity of following up with PCP regularly as well as specialists, as needed. Discussed F/U with dentistry and optometry at least yearly. Discussed all preventative measures/ cancer screenings as applicable to this patient. Emphasized the importance of a reduced fat, low carb diet to promote heart health and controlled blood sugars. Reviewed social history and ensured patient is safe within the home today. Pt denies any abuse of alcohol, nicotine, caffeine or recreational drugs. I have ensured patient is of stable mental and physical health today. We have discussed appropriate F/U schedule as well as blood work and vaccinations that apply. All questions answered and patient is sent home pleased, without concerns. Having labs at work next week. Apr, Other obesity due to excess calories (ICD-10 - E66.09) Consider adipex - BP elevated today Apr, Body mass index [BMI] 32.0-32.9, adult (ICD-10 - Z68.32) Apr, Loud snoring (ICD-10 - R06.83) Pt agrees to HST through [facility]. Order handwritten. [facility] Other Evaluation note Note Date & Type Note Facility Evaluation note No Information [facility] Other Evaluation note Note Date & Type Note Facility Evaluation note Diagnosis Onset Date Resolution Class 1 obesity with body mass index (BMI) of 33.0 to 33.9 in adult acute July 13, 2025 1:24pm Wellness examination acute Jun 1:24pm [facility] [employer] Work Phone: History general Narrative - Reported Note Date & Type Note Facility History general Narrative - Reported Type Surgical History hysterectomy 2013 Surgical History [facility] Hospitalization History pneumonia x 3 [facility] Other History general Narrative - Reported Note Date & Type Note Facility History general Narrative - Reported Type Medical History Obesity due to excess calories Surgical History hysterectomy 2013 Surgical History [facility] Hospitalization History pneumonia x 3 [facility] Other Reason for referral (narrative) Note Date & Type Note Facility Reason for referral (narrative) No reason for referral information available [facility] Work Phone: Summary Purpose Family History Relationship Condition Age at Onset Recorded Date/T tommy father Heart disease Unknown mother Malignant neoplasm Unknown Advance Directives Advance Directive Response Recorded Date/ Time Advance Directives No June 9:22am Chief Complaint and Reason for Visit Chief Complaint Admit Date Wellness, Physical July 13, 2025 1:24pm Reason for Visit Admit Date Class 1 obesity with body ma ss index (BMI) of 33.0 to 33.9 in adult July 13, 2025 1:24pm Wellness examination July 13 1:24pm Additional Source Comments INFORMATION SOURCE (unrecogn ized section and content) DATE CREATED AUTHOR 06/20/2020 [facility] DATE CREATED AUTHOR AUTHOR'S ORGANIZ ATION 07/25/2022 [facility] DATE CREATED AUTHOR AUTHOR'S ORGANIZ ATION 08/03/2024 [facility] REASON FOR VISIT (unrecogniz ed section and content) [facility] [employer] Care Teams (unrecognized sec tion and content) Team Status: Active Member Role Status Dates Giana Joseph MD Primary Care Provider Active Team Status: Inactive Member Role Status Dates Giana Joseph MD Primary Care Provider Active Start: July 13, 2025 End: July 13, 2025 Giana Joseph MD Attending Provider Active St art: July 13, 2025 End: July 13, 2025 Goals (unrecognized section and content) Goals may be documented in a n alternate section FOR RECORDS PERTAINING TO PATIENTS WHO ARE OR HAVE BEEN ENROLLED IN A CHEMICAL DEPENDENCY/SUBSTANCEABUSE PROGRAM, SOME INFORMATION MAY BE OMITTED. This clinical summary was aggregated from multiple sources. Caution should be exercised in using it in the provision of clinical care. This summary normalizes information from multiple sources, and as a consequence, information in this document may materially change the coding, format and clinical context of patient data. In addition, data may be omitted in some cases. CLINICAL DECISIONS SHOULD BE BASED ON THE PRIMARY CLINICAL RECORDS. [employer] provides no warranty or guarantee of the accuracy or completeness of information in this document.
--- OUTSIDE RECORDS SUMMARY | 2025-08-06 13:32 | XMS_ITS | Clinical Summary ---
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
--- OUTSIDE RECORDS SUMMARY | 2025-08-06 13:32 | XMS_ITS | Clinical Summary ---
Author Organization [facility] Address [address] [place] [address], [address] [place] [address] Care Team Providers Care Apprentice Instrument Technician Name Role Phone Unavailable Primary Care Provider Unavailabl e Social History Tobacco Use Types Packs/Day Years Used Date Smoking Tobacco: Never Assessed Comments Unknown Sex and Gender Information Value Date Recorded Sex Assigned at Not on file Legal Sex Female 12:32 PM EDT Gender Identity Not on file Sexual Orientation Not on file Plan of Treatment Not on file Insurance [facility] [place] [place] [address]
--- NOTE | 2025-08-06 13:55 | MM_ITS ---
Patient Name: MILIND DELGADO MR#: [id number] : 1975 Exam Date: 08/06/2025 Ordering Doctor: DR JUNAID MUIR M.D. RADIOLOGY REPORT PROCEDURE: MM TOMOSYNTHESIS SCREENING BI COMPARISON: MG MAMM SCREEN 3D ALISA CAD, 07/13/2022. MG MAMM SCREEN 3D ALISA CAD, 06/10/2021. MG MAMM SCREEN 3D ALISA CAD, 11/04/2019. INDICATIONS: Screening Calculator Name NCI Breast Cancer Risk Assessment Tool 5 Year Breast Cancer Risk 2.00% Lifetime Breast Cancer Risk 17.90% Personal Breast Cancer No Personal Ovarian Cancer No Treatments None Family Cancers Mother with breast cancer at age 42; Mother with thyroid cancer at age 60. LOCATION: [facility] BREAST COMPOSITION: The breasts are heterogeneously dense, which may obscure small masses. FINDINGS: DIAGNOSTIC CATEGORY 1--NEGATIVE. RIGHT BREAST: No significant suspicious finding. LEFT BREAST: No significant suspicious finding. RECOMMENDATIONS: ROUTINE MAMMOGRAM AND CLINICAL EVALUATION IN 12 MONTHS. Dictated by: Yordan Tompkins MD on 08/06/2025 at 15:30 Approved by: Yordan Tompkins MD on 08/06/2025 at 15:31
== END 2025-08-06 13:30 | disposition home or self-care (01) ==
LOC: MAMMO 13:29
PROVIDERS: PCP Family Medicine; Visit Provider Family Medicine
DX: Z12.31 Encounter for screening mammogram for malignant neoplasm of breast (principal); Z80.3 Family history of malignant neoplasm of breast; Z80.8 Family history of malignant neoplasm of other organs or systems
CPT/HCPCS: 77063; 77067